=== PATIENT | female | born 1950 | race Caucasian/White ===

== ENCOUNTER 2024-10-12 14:56 | Outpatient (CLI) | payer OTHER ==
[2024-10-12 15:29] LABS: Estimated GFR - POC 67.0
== END 2024-10-12 14:57 | disposition home or self-care (01) ==
LOC: SCSMRI 14:56
PROVIDERS: ATTEND Physician Assistant
DX: H90.3 Sensorineural hearing loss, bilateral (principal); H74.8X2 Other specified disorders of left middle ear and mastoid; I67.82 Cerebral ischemia
CPT/HCPCS: 36415; 70553; 76376; 82565